=== PATIENT | male | born 1990 | race Native Hawaiian/Other Pacific Islander ===

== ENCOUNTER 2018-12-27 19:07 | Emergency (ER) | payer OTHER ==
[~2018-12-27] VITALS: Ht 177.8 cm; Wt 76.7 kg
[2018-12-27 19:51] LABS: PLATELET COUNT 241 K/uL (142-355)
[2018-12-27 23:17] VITALS: BP 142/84; TEMP 97.9
== END 2018-12-27 23:19 | disposition home or self-care (01) ==
LOC: ED 19:07
PROVIDERS: Emergency Medicine
DX: R10.31 Right lower quadrant pain (principal); N23 Unspecified renal colic
CPT/HCPCS: 80053; 81000; 82150; 83690; 85027; 96365; 96375; 99284; J1885; Q9963